=== PATIENT | female | born 1960 | race African-American/Black ===

== ENCOUNTER 2017-01-04 16:58 | Emergency (ER) | payer OTHER ==
[~2017-01-04] VITALS: Ht 172.7 cm; Wt 90.7 kg
[2017-01-04 17:03] VITALS: BP 146/75
[2017-01-04] MEDS ORDERED: HYDROmorphone 1 MG/ML AMP IVP ONE (17:15)
[2017-01-04] MEDS ORDERED: NACL 0.9% 250 ML IV ONE (17:15)
[2017-01-04] MEDS ORDERED: METOCLOPRAMIDE 10 MG/2 ML INJ VIAL IVP ONE (17:15)
[2017-01-04 17:31] LABS: BASOPHILS % (AUTO) 0.7 % (0.0-2.0); EOSINOPHILS # (AUTO) 0.2 K/uL (0-0.4); EOSINOPHILS % (AUTO) 3.2 % (0.0-4.0); HEMATOCRIT 33.9 % (36-48); HEMOGLOBIN 10.8 g/dL (12.0-16.0); LYMPHOCYTES # (AUTO) 1.7 K/uL (2.5-16.5); LYMPHOCYTES % (AUTO) 26.4 % (20.5-51.1); MEAN CORPUSCULAR HEMOGLOBIN 30 pg (27-31); MEAN CORPUSCULAR HGB CONC 32 g/dL (33-37); MEAN CORPUSCULAR VOLUME 95 fL (80-94); MONOCYTES # (AUTO) 0.4 K/uL (0.8-1.0); MONOCYTES % (AUTO) 5.9 % (1.7-9.3); NEUTROPHILS # (AUTO) 4.3 K/uL (1.8-7.7); NEUTROPHILS % (AUTO) 63.8 % (42.2-75.2); PLATELET COUNT (AUTO) 251 K/uL (140-450); RED BLOOD CELL COUNT(AUTO) 3.56 MIL/uL (4.20-5.40); RED CELL DISTRIBUTION WIDTH 15.4 % (11.6-13.7); WHITE BLOOD COUNT (AUTO) 6.6 K/uL (4.8-10.8)
[2017-01-04 17:50] LABS: ALBUMIN 3.7 g/dL (3.4-5.0); ANION GAP 26.5 (8-16); CARBON DIOXIDE 20.8 mmol/L (21-32); POTASSIUM 4.3 mmol/L (3.5-5.1); TOTAL BILIRUBIN 0.4 mg/dL (0.0-1.0)
[2017-01-04 17:54] LABS: CREATININE 19.7 mg/dL (0.6-1.3)
[2017-01-04] MEDS ORDERED: NALOXONE 0.4 MG/ML VIAL IVP ONE (17:55)
[2017-01-04] MEDS ORDERED: NIFE60TE5 PO (18:07)
[2017-01-04] MEDS ORDERED: FERR325E14 PO (18:07)
[2017-01-04] MEDS ORDERED: ATI.5 PO (18:07)
[2017-01-04] MEDS ORDERED: METO50TE2 PO (18:07)
[2017-01-04] MEDS ORDERED: NIFE60TE8 PO (18:25)
[2017-01-04] MEDS ORDERED: CINA30TA PO (18:47)
[2017-01-04] MEDS ORDERED: SEVE800T6 PO (18:47)
[2017-01-04] MEDS ORDERED: [UNRECOGNIZED DRUG - CODE] PO (18:47)
[2017-01-04] MEDS ORDERED: FURO-570 PO (18:47)
[2017-01-04] MEDS ORDERED: ATOR40TA PO (18:47)
[2017-01-04 20:33] VITALS: BP 142/87
== END 2017-01-04 20:33 | disposition short-term general hospital (02) ==
LOC: MED 16:58
DX: K85.90 Acute pancreatitis without necrosis or infection, unspecified (principal); I12.0 Hypertensive chronic kidney disease with stage 5 chronic kidney disease or end stage renal disease; N18.6 End stage renal disease; Z99.2 Dependence on renal dialysis; D64.9 Anemia, unspecified; E78.5 Hyperlipidemia, unspecified; Z79.1 Long term (current) use of non-steroidal anti-inflammatories (NSAID); Z79.899 Other long term (current) drug therapy; Z88.8 Allergy status to other drugs, medicaments and biological substances
CPT/HCPCS: 36415; 80053; 83690; 85025; 93005; 96374; 96375; 99285; J1170; J2310; J2765; J7030

== ENCOUNTER 2017-02-23 07:23 | Emergency (ER) | payer OTHER ==
[~2017-02-23] VITALS: Ht 172.7 cm; Wt 104.3 kg
[~2017-02-23 07:23] MED LIST: ATI.5 PO; ATOR40TA PO; FERR325E14 PO; FURO-570 PO; HYDR-3233 PO; METO50TE2 PO; NIFE60TE8 PO; SEN30 PO; SEVE800T6 PO
--- NOTE | 2017-02-23 07:30 | NUR ---
Patient BIBA to bed 7
[2017-02-23 07:32] VITALS: BP 119/87
[2017-02-23] MEDS ORDERED: ONDANSETRON 4 MG/2 ML VIAL IVP ONE ×2 (07:35→10:45)
[2017-02-23] MEDS ORDERED: MORPHINE SULFATE 4 MG/ML SYR IVP ONE (07:35)
--- NOTE | 2017-02-23 07:35 | NUR ---
PT BIBA FOR EVALUATION OF DIFFUSE ABDOMINAL PAIN SINCE LAST NOC. HX OF ESRD ON DIALYSIS 3XWEEKLY, HTN. PT STATES SHE WAS UNABLE TO BE DIALYZED YESTERDAY HER SHUNT WAS NOT FUNCTIONING. . PT STATES SHE FEELS NAUSEOUS AND VOMITTED;ALSO C/O DIARRHEA;W/ D[facility]UV CATH FOR DIALYSIS; SKIN IS PINK/WARM/DRY; AAOX4; LUNGS CLEAR BL; HR EVEN AND REGULAR; PT DENIES ANY FEVER, CP, SOB, OR COUGH AT THIS TIME; PATIENT STATES PAIN OF 10/10 AT THIS TIME; PATIENT POSITIONED FOR COMFORT; HOB ELEVATED; BEDRAILS UP X2; BED DOWN.ALL MONITORS IN PLACED; ER MD MADE AWARE OF PT STATUS.
[2017-02-23] MEDS ORDERED: MORPHINE SULFATE 4 MG/ML SYR ONE (07:45)
[2017-02-23 07:49] LABS: BASOPHILS # (AUTO) 0.1 K/uL (0.00-0.22); BASOPHILS % (AUTO) 0.8 % (0.0-2.0); EOSINOPHILS # (AUTO) 0.1 K/uL (0-0.4); EOSINOPHILS % (AUTO) 1.1 % (0.0-4.0); HEMATOCRIT 38.6 % (36-48); HEMOGLOBIN 12.4 g/dL (12.0-16.0); LYMPHOCYTES # (AUTO) 1.6 K/uL (2.5-16.5); LYMPHOCYTES % (AUTO) 19.8 % (20.5-51.1); MEAN CORPUSCULAR HEMOGLOBIN 30 pg (27-31); MEAN CORPUSCULAR HGB CONC 32 g/dL (33-37); MEAN CORPUSCULAR VOLUME 93 fL (80-94); MONOCYTES # (AUTO) 0.5 K/uL (0.8-1.0); MONOCYTES % (AUTO) 6.5 % (1.7-9.3); NEUTROPHILS # (AUTO) 5.7 K/uL (1.8-7.7); NEUTROPHILS % (AUTO) 71.8 % (42.2-75.2); PLATELET COUNT (AUTO) 268 K/uL (140-450); RED BLOOD CELL COUNT(AUTO) 4.16 MIL/uL (4.20-5.40); RED CELL DISTRIBUTION WIDTH 14.8 % (11.6-13.7)
[2017-02-23 08:11] LABS: PROTHROMBIN TIME 10.2 secs (10.8-13.4)
[2017-02-23 08:18] LABS: ALBUMIN 3.5 g/dL (3.4-5.0); CARBON DIOXIDE 23.5 mmol/L (21-32); MAGNESIUM 2.6 mg/dL (1.8-2.4); POTASSIUM 3.5 mmol/L (3.5-5.1); TOTAL BILIRUBIN 0.4 mg/dL (0.0-1.0)
[2017-02-23 08:29] LABS: CREATININE 15.2 mg/dL (0.6-1.3)
--- NOTE | 2017-02-23 08:29 | NUR ---
PT STILL C/O SEVERE ABDOMINAL PAIN;POSITIONE PT TO COMFORTABLE POSITION;ER MD NOTIFIED;VERBAL ORDER OF 2 MG MORPHINE;WILL CONTIUE TO MONITOR PT.
[2017-02-23] MEDS ORDERED: MORPHINE SULFATE 2 MG/ML SYR IVP ONE (08:35)
[2017-02-23] MEDS ORDERED: MORPHINE SULFATE 2 MG/ML SYR ONE (08:35)
--- NOTE | 2017-02-23 08:43 | NUR ---
PT UNABLE TO GIVE URINE;
--- NOTE | 2017-02-23 09:11 | NUR ---
PT VOMITTED;PUT PT TO HIGH FOWLERS POSITION;ER NOTIFIED;
--- NOTE | 2017-02-23 09:40 | NUR ---
PT C/O ABDOMINAL PAIN;ER MD NOTIFIED;VERBAL ORDER OF 1 MG DILUADID;
[2017-02-23] MEDS ORDERED: HYDROmorphone 1 MG/ML AMP IVP ONE (09:55)
--- NOTE | 2017-02-23 09:55 | NUR ---
DILAUDID 1 MG WAS GIVEN
[2017-02-23] MEDS ORDERED: HYDROmorphone 1 MG/ML AMP ONE (10:00)
--- NOTE | 2017-02-23 10:05 | NUR ---
Patient to be transferred to [facility]. Is being transferred due to INSURANCE REQUEST. Receiving facility has accepting physician and available space. ER physician has signed transfer form. Patient or responsible democrat has agreed to transfer and signed form. Patient belongings inventoried and will be sent with patient. Copy of nursing notes, lab reports, EKG, Physicians Orders and X-rays to be sent with patient. Report called to CATY BROWNLEE at receiving facility. [facility] ambulance service has been called for transfer. ETA is 1040.
[2017-02-23 10:56] VITALS: BP 115/73
== END 2017-02-23 10:56 | disposition short-term general hospital (02) ==
LOC: MED 07:23
DX: K85.80 Other acute pancreatitis without necrosis or infection (principal); I12.0 Hypertensive chronic kidney disease with stage 5 chronic kidney disease or end stage renal disease; N18.6 End stage renal disease; K76.89 Other specified diseases of liver; E78.5 Hyperlipidemia, unspecified; D64.9 Anemia, unspecified; Z99.2 Dependence on renal dialysis
CPT/HCPCS: 71010; 74176; 80053; 82150; 83690; 83735; 85025; 85610; 85730; 93005; 96374; 96375; 96376; 99285; J1170; J2270; J2405; Q0092

== ENCOUNTER 2017-07-12 09:44 | Emergency (ER) | payer OTHER ==
[~2017-07-12] VITALS: Ht 172.7 cm; Wt 102.5 kg
--- NOTE | 2017-07-12 09:53 | NUR ---
Patient BIBA to bed 3 at this time.
--- NOTE | 2017-07-12 09:54 | NUR ---
patient is a 57 year-old female who was brought in by ambulance for c/o abdominal pain beginning this morning at 6am. patient is alert and oriented. respirations are even and unlabored. no cough, dypnea, fever, chills, diarrhea observed. during assessment patient yells out " I need pain medication. I'm in pain." re-assured patient that care will be provided. patient's abdomen is round, tender to touch upon palpation to left upper quadrant. bowel sounds present. awaiting er md. will continue to monitor.
--- NOTE | 2017-07-12 10:00 | NUR ---
patient yelling out " nurse, i need a blanket." blanket provided. patient stable. will continue to monitor.
[2017-07-12 10:03] VITALS: BP 158/100
--- NOTE | 2017-07-12 10:37 | NUR ---
ER MD DR. VANCE EVALUATING PT AT BEDSIDE.
[2017-07-12] MEDS ORDERED: diphenhydrAMINE 50 MG/ML VIAL IVP ONE (10:45)
[2017-07-12] MEDS ORDERED: ONDANSETRON 4 MG/2 ML VIAL IVP ONE (10:45)
[2017-07-12] MEDS ORDERED: PROCHLORPERAZINE 10 MG/2 ML VIAL IVP ONE (10:45)
[2017-07-12] MEDS ORDERED: MORPHINE SULFATE 10 MG/ML SYR IVP ONE (10:45)
[2017-07-12] MEDS ORDERED: MORPHINE SULFATE 5 MG/ML VIAL ONE (10:57)
--- NOTE | 2017-07-12 11:00 | NUR ---
explained new orders given by physician and that this nurse will need to start an iv, patient states "Hurry up and do it already." re-assured patient that medications will be given as ordered. ivhl placed to rac, patient tolerated well.
--- NOTE | 2017-07-12 11:10 | NUR ---
lab at bedside for blood draw. patient replied "go somewhere else, let me get my pain medication first."
--- NOTE | 2017-07-12 11:28 | NUR ---
US AT BEDSIDE.
[2017-07-12 11:32] LABS: BASOPHILS % (AUTO) 0.5 % (0.0-2.0); EOSINOPHILS % (AUTO) 0.6 % (0.0-4.0); HEMATOCRIT 34.2 % (36-48); HEMOGLOBIN 10.9 g/dL (12.0-16.0); LYMPHOCYTES % (AUTO) 13.2 % (20.5-51.1); MEAN CORPUSCULAR HEMOGLOBIN 30 pg (27-31); MEAN CORPUSCULAR HGB CONC 32 g/dL (33-37); MEAN CORPUSCULAR VOLUME 94 fL (80-94); MONOCYTES # (AUTO) 0.3 K/uL (0.8-1.0); MONOCYTES % (AUTO) 3.8 % (1.7-9.3); NEUTROPHILS # (AUTO) 6.2 K/uL (1.8-7.7); NEUTROPHILS % (AUTO) 81.9 % (42.2-75.2); PLATELET COUNT (AUTO) 260 K/uL (140-450); RED BLOOD CELL COUNT(AUTO) 3.65 MIL/uL (4.20-5.40); RED CELL DISTRIBUTION WIDTH 17.1 % (11.6-13.7); WHITE BLOOD COUNT (AUTO) 7.5 K/uL (4.8-10.8)
--- NOTE | 2017-07-12 11:37 | NUR ---
informed patient that urine sample is needed, patient replied by saying "I'm a renal patient. I don't pee." made aware.
--- NOTE | 2017-07-12 11:55 | NUR ---
follow patient snoring at bedside, able to wake patient up. respirations are even and unlabored. vss. per patient pain is decreasing and currently rates at 7/10. will continue to monitor.
[2017-07-12 12:25] LABS: ANION GAP 19.9 (8-16); POTASSIUM 3.9 mmol/L (3.5-5.1)
[2017-07-12 12:28] LABS: CREATININE 11.7 mg/dL (0.6-1.3)
[2017-07-12 12:40] LABS: ALBUMIN 3.3 g/dL (3.4-5.0); TOTAL BILIRUBIN 0.4 mg/dL (0.0-1.0)
--- NOTE | 2017-07-12 12:40 | NUR ---
patient resting at this time. respirations are even and unlabored. patient states her abdominal pain is decreasing at this time. will continue to monitor.
--- NOTE | 2017-07-12 13:43 | NUR ---
Patient discharged with v/s stable. Written and verbal after care instructions given and explained. Patient alert, oriented and verbalized understanding of instructions. Ambulatory with steady gait. All questions addressed prior to discharge. ID band removed. Patient advised to follow up with PMD. Rx of Ativan and Reglan given. Patient educated on indication of medication including possible reaction and side effects. Opportunity to ask questions provided and answered.
[2017-07-12 13:45] VITALS: BP 134/78
== END 2017-07-12 12:26 | disposition home or self-care (01) ==
LOC: MED 09:44
DX: I12.0 Hypertensive chronic kidney disease with stage 5 chronic kidney disease or end stage renal disease (principal); N18.6 End stage renal disease; Z99.2 Dependence on renal dialysis; F41.9 Anxiety disorder, unspecified; R10.9 Unspecified abdominal pain; I10 Essential (primary) hypertension; Z79.899 Other long term (current) drug therapy; Z88.8 Allergy status to other drugs, medicaments and biological substances
CPT/HCPCS: 76705; 80053; 83690; 84478; 85025; 93005; 96374; 96375; 99285; J0780; J1200; J2270; J2405; Q0092

== ENCOUNTER 2017-08-16 05:30 | Emergency (ER) | payer OTHER ==
[~2017-08-16] VITALS: Ht 175.3 cm; Wt 103.9 kg
--- NOTE | 2017-08-16 05:30 | NUR ---
PATIENT BIB [facility] TO ER BED 12.
[2017-08-16 05:32] VITALS: BP 96/52
[2017-08-16] MEDS ORDERED: MORPHINE SULFATE 4 MG/ML SYR IVP ONE (05:45)
[2017-08-16] MEDS ORDERED: diphenhydrAMINE 50 MG/ML VIAL IVP ONE (05:45)
--- NOTE | 2017-08-16 05:45 | NUR ---
57/F BIBA, C/O CHEST PAIN X4 HOURS. PT POOR HISTORIAN, REFUSES TO GIVE ACCURATE HISTORY WHEN QUESTIONED. PT REPORTS SOB, PT PLACED ON 6L O2 SIMPLE MASK, SPO 93% AT THIS TIME, RR 28. PT DENIES FEVER, N/V/D, DYSURIA. PT HAS L CHEST DIALYSIS ACCESS. HX ESRD (MWF), HTN. PT PLACED ON STARCHMAKER. PT REFUSING TO COLLECT URINE SAMPLE AT THIS TIME, WILL ATTEMPT LATER. MITALI COMER. Addendum: 08/16/17 at 0635 by NABILA PT UNABLE TO COLLECT URINE, PT STATED THAT SHE DOES NOT URINATE.
--- NOTE | 2017-08-16 06:05 | NUR ---
MOLDER CLOSED MOLDS ABLE TO INSERT IV ON RAC, DUE IVP MEDS ADMINISTERED WITH EDUCATION.
[2017-08-16] MEDS ORDERED: fentaNYL 0.05 MG/ML VIAL IM ONE (06:10)
--- NOTE | 2017-08-16 06:13 | NUR ---
IV ACCESS INFILTRATED, REMOVED AT THIS TIME.
--- NOTE | 2017-08-16 06:15 | NUR ---
PT AGITATED, REPORTS THAT MEDICATIONS DID NOT WORK. PT REFUSING CXR AND LAB DRAWS AT THIS TIME. DR JOHNSON MADE AWARE.
--- NOTE | 2017-08-16 06:35 | NUR ---
EDUCATIONAL TECHNOLOGY COORDINATOR ABLE TO INSERT IV ON R HAND 24G
[2017-08-16] MEDS ORDERED: MORPHINE SULFATE 2 MG/ML SYR IVP ONE (06:50)
--- NOTE | 2017-08-16 07:04 | NUR ---
PT C/O PERSISTENT PAIN DESPITE MEDICATIONS. ADMINISTERED MORHINE 2MG IVP ORDERED. PT TOLERATED WELL. PT REPORTED RELIEF OF PAIN. PT AGREEING TO HAVE CXR AND LAB DRAWS NOW.
--- NOTE | 2017-08-16 07:19 | NUR ---
Pt report given to CATY CHAU. Transfer of care at this time.
[2017-08-16 07:33] LABS: BASOPHILS % (AUTO) 0.4 % (0.0-2.0); EOSINOPHILS % (AUTO) 0.1 % (0.0-4.0); HEMATOCRIT 36.8 % (36-48); HEMOGLOBIN 11.6 g/dL (12.0-16.0); LYMPHOCYTES # (AUTO) 0.5 K/uL (2.5-16.5); LYMPHOCYTES % (AUTO) 5.5 % (20.5-51.1); MEAN CORPUSCULAR HEMOGLOBIN 29 pg (27-31); MEAN CORPUSCULAR HGB CONC 32 g/dL (33-37); MONOCYTES # (AUTO) 0.6 K/uL (0.8-1.0); NEUTROPHILS # (AUTO) 8.5 K/uL (1.8-7.7); PLATELET COUNT (AUTO) 268 K/uL (140-450); RED BLOOD CELL COUNT(AUTO) 3.96 MIL/uL (4.20-5.40); RED CELL DISTRIBUTION WIDTH 16.9 % (11.6-13.7); WHITE BLOOD COUNT (AUTO) 9.6 K/uL (4.8-10.8)
--- NOTE | 2017-08-16 07:45 | NUR ---
XRAY AT BEDSIDE
[2017-08-16 07:52] LABS: ALBUMIN 3.2 g/dL (3.4-5.0); ANION GAP 23.7 (8-16); CARBON DIOXIDE 21.3 mmol/L (21-32); TOTAL BILIRUBIN 0.5 mg/dL (0.0-1.0)
--- NOTE | 2017-08-16 08:09 | NUR ---
CRITICAL LAB VALUE RECEIVED FROM MILAGRO IN LAB AT 0809. CRITICAL VALUE BUN 81. NOTIFIED. WILL CONTINUE TO MONITOR.
--- NOTE | 2017-08-16 09:41 | NUR ---
LAB CALLED, SPOKE TO MILAGRO REGARDING CRITICAL VALUE, TROPONIN [phone] HIGH. ER SECHRIST NOTIFIED. WILL CONTINUE TO MONITOR.
[2017-08-16] MEDS ORDERED: AZITHROMYCIN 500 MG in DEXTROSE 5% 250 ML IV SCH (10:17)
[2017-08-16] MEDS ORDERED: MORPHINE SULFATE 4 MG/ML SYR IVP SCH (10:19)
[2017-08-16] MEDS ORDERED: AZITHROMYCIN 500 MG INJ VIAL IV ONE (10:20)
[2017-08-16] MEDS ORDERED: cefTRIAXone 1,000 MG VIAL ONE (10:21)
[2017-08-16] MEDS ORDERED: MORPHINE SULFATE 5 MG/ML VIAL ONE (10:28)
--- NOTE | 2017-08-16 10:50 | NUR ---
PT REQUESTING "I NEED THAT DILAUDID WITH BENADRYL...THAT MORPHINE DON'T WORK ON ME"; ER SECHRIST MADE AWARE.
--- NOTE | 2017-08-16 11:23 | NUR ---
Patient to be transferred to [facility]. Is being transferred due to continuation of care. Receiving facility has accepting physician and available space. ER physician has signed transfer form. Patient or responsible alliance party has agreed to transfer and signed form. Patient belongings inventoried and will be sent with patient. Copy of nursing notes, lab reports, EKG, Physicians Orders and X-rays to be sent with patient. Report called to CATY Brock at receiving facility. [facility] ambulance service has been called for transfer. ETA is 10 minutes. Pt aware of transfer status.
--- NOTE | 2017-08-16 11:24 | NUR ---
LIMS DIMMED. PT RESTING WITH EYES CLOSED LAYING SUPINE IN GURNEY WITH HOB. PT IS AOX4. RR ARE EVEN AND UNLABORED. ALL NEEDS MET AT THIS TIME. WILL CONTINUE TO MONITOR.
--- NOTE | 2017-08-16 12:08 | NUR ---
TRANSPORT TO [facility]
--- NOTE | 2017-08-16 12:18 | NUR ---
PT LEFT VIA GURNEY W/ [facility]. PT A&O X 4. VSS. RESPIRATIONS EVEN AND UNLABORED. PT LEFT ER WITHOUT INCIDENT.
[2017-08-16 12:20] VITALS: BP 134/92
== END 2017-08-16 12:18 | disposition short-term general hospital (02) ==
LOC: MED 05:30
DX: R07.89 Other chest pain (principal); I12.0 Hypertensive chronic kidney disease with stage 5 chronic kidney disease or end stage renal disease; N18.6 End stage renal disease; R79.89 Other specified abnormal findings of blood chemistry; J18.9 Pneumonia, unspecified organism; Z99.2 Dependence on renal dialysis; Z79.899 Other long term (current) drug therapy; Z88.8 Allergy status to other drugs, medicaments and biological substances
CPT/HCPCS: 36415; 71045; 80053; 83880; 84484; 85025; 85379; 87040; 93005; 96365; 96372; 96375; 96376; 99285; J0456; J0696; J1200; J2270; J3010; J7030; J7060; Q0092